=== PATIENT | female | born 1950 | race Caucasian/White ===

== ENCOUNTER 2017-08-07 21:46 | Emergency (ER) | END 2017-08-08 01:14 | disposition home or self-care (01) ==

== ENCOUNTER 2018-11-15 10:37 | Emergency (ER) | payer MEDICARE, OTHER ==
[~2018-11-15] VITALS: Wt 69.5 kg
[~2018-11-15 10:37] MED LIST: AMLO-147 PO; BENA40TA56 PO; CEPH-443 PO; CIPR7.5D BOTH EARS; CLIN300C10 PO; HYDR25TA6 PO
[2018-11-15 10:42] VITALS: BP 137/65; PULSE 68; RESP 20
[2018-11-15] MEDS ORDERED: CIPR7.5D BOTH EARS (10:58)
[2018-11-15] MEDS ORDERED: ACET500C5 PO (10:58)
--- NOTE | 2018-11-15 11:00 | ERD ---
ER Documentation Chief Complaint Chief Complaint c/o bilateral ear pain with drainage at home, "on and off infection x1.5 yr HPI 68-year-old female presents with some right ear discharge and pain. She said intermittent infections and usually responds to antibiotic drops. She is using acetic acid drops currently. She states that she has an appointment with ENT within the next 1-2 months at all a few. She denies fevers, cough, congestion, chest pain or shortness of breath. ROS All systems reviewed and are negative except as per history of present illness. Medications Home Meds Active Scripts Acetaminophen* (Tylophen*) 500 Mg Capsule, 1 CAP PO Q6H PRN for PAIN AND OR ELEVATED TEMP, #20 CAP Prov:ANNABEL MCINTOSH MD 11/15/18 Ciprofloxacin Hcl/Dexameth (Ciprodex Otic Suspension) 7.5 Ml Drops.susp, 4 DROP BOTH EARS BID for 10 Days, EA Prov:ANNABEL MCINTOSH MD 11/15/18 Clindamycin Hcl* (Clindamycin Hcl*) 300 Mg Capsule, 300 MG PO TID for 10 Days, CAP Prov:ESPINOZA BUI PA-C 08/08/17 Ciprofloxacin Hcl/Dexameth (Ciprodex Otic Suspension) 7.5 Ml Drops.susp, 4 DROP BOTH EARS BID for 7 Days, EA Prov:ESPINOZA BUI PA-C 08/08/17 Reported Medications Hydrochlorothiazide (Hydrochlorothiazide) 25 Mg Tablet, 25 MG PO 02/25/11 Cephalexin* (Keflex*) 500 Mg Capsule, 500 MG PO QID 02/25/11 Amlodipine Besylate* (Amlodipine Besylate*) 10 Mg Tablet, 10 MG PO DAILY 02/25/11 Benazepril Hcl* (Benazepril Hcl*) 40 Mg Tablet, 40 MG PO DAILY 02/25/11 Allergies Allergies: Coded Allergies: Penicillins (Verified Adverse Reaction, Mild, 02/25/11) PMhx/Soc History of Surgery: Yes (RJ, C/S) Anesthesia Reaction: No Hx Neurological Disorder: No Hx Respiratory Disorders: No Hx Cardiac Disorders: Yes (HTN) Hx Psychiatric Problems: No Hx Miscellaneous Medical Probl: No Hx Alcohol Use: No Hx Substance Use: No Hx Tobacco Use: No Smoking Status: Never smoker FmHx Family History: No diabetes, No coronary disease, No other Physical Exam Vitals Vital Signs Date Temp Pulse Resp B/P (MAP) Pulse Ox O2 O2 Flow FiO2 Time Delivery Rate 11/15/18 99.6 68 20 137/65 96 10:42 (89) Physical Exam Const: No acute distress Head: Atraumatic Eyes: Normal Conjunctiva ENT: Normal External Ears, Nose and Mouth. Irritation of the right external auditory canal with slight exudate. TMs grossly normal. Airway patent without erythema, acute abnormalities noted. Neck: Full range of motion. No meningismus. Resp: Clear to auscultation bilaterally Cardio: Regular rate and rhythm, no murmurs Abd: Soft, non tender, non distended. Normal bowel sounds Skin: No petechiae or rashes Back: No midline or flank tenderness Ext: No cyanosis, or edema Neur: Awake and alert Psych: Normal Mood and Affect Procedures/MDM Patient presents with remittent right ear pain and discharge worsening over the last week. We will treat with previous medication prescribed Ciprodex. Patient is advised to keep her ENT appointment for persistent symptoms. She should return for fevers, swelling, redness, new worsening symptoms. The patient was stable with no new complaints during the ER course. Clinically, there is no current evidence to suggest meningitis, sepsis, acute abdomen, pneumonia, stroke, acute coronary syndrome, pulmonary embolism, aortic dissection or any other emergent condition appearing to require further evaluation or hospitalization. Patient counseled regarding my diagnostic impression and care plan. Prior to discharge all questions answered. Pt agrees with treatment plan and understands strict return precautions. Pt is instructed to follow up with primary care provider within 24-48 hours. Precautionary instructions provided including instructions to return to the ER if not improving or for any worsening or changing symptoms or concerns. Departure Diagnosis: Primary Impression: Right ear pain Condition: Stable Patient Instructions: External Ear Infection (Adult) Referrals: DOCTOR,NOT ON STAFF (PCP) Additional Instructions: Recheck with ENT as scheduled or return for new or worsening symptoms. ANNABEL MCINTOSH MD Nov 15, 2018 11:00
== END 2018-11-15 11:39 | disposition home or self-care (01) ==
LOC: FTE 10:37
DX: H92.01 Otalgia, right ear (principal); I10 Essential (primary) hypertension
CPT/HCPCS: 99283

== ENCOUNTER 2018-11-18 12:51 | Emergency (ER) | payer MEDICARE, OTHER ==
[~2018-11-18] VITALS: Ht 152.4 cm; Wt 68.6 kg
[~2018-11-18 12:51] MED LIST changes: +ACET500C5 PO
[2018-11-18 12:54] VITALS: Ht 152.4 cm; Wt 68.6 kg
[2018-11-18] MEDS ORDERED: FLUCONAZOLE 150 MG TAB PO ONE (13:30)
[2018-11-18] MEDS ORDERED: D-ME473S2 PO (14:20)
[2018-11-18] MEDS ORDERED: NYST1000 PO (14:20)
--- NOTE | 2018-11-18 14:23 | ERD ---
ER Documentation Chief Complaint Chief Complaint SORE THROAT,COUGH X 2 WEEKS.UNABLE TO EAT. HPI 68-year-old female since with pain in her throat for the last 2 weeks. She is seen by me approximately 4 days ago. She was diagnosed with otitis externa. She did have some white patches on her tongue previous examination but patient thought it was from drinking milk. She has an additional complaint of cough for the last 3 weeks. Cough is nonproductive and dry. She denies chest pain, vomiting, abdominal pain, chest pain. ROS All systems reviewed and are negative except as per history of present illness. Medications Home Meds Active Scripts Nystatin (Nystatin) 100,000 Unit/1 Ml Oral.susp, 5 ML PO QID for 7 Days, OZ Swish and swallow Prov:ANNABEL MCINTOSH MD 11/18/18 Dextromethorphan Hb-Promethazine Hcl* (Promethazine DM* Syrup) 473 Ml Syrup, 5 ML PO Q6 PRN for COUGH for 5 Days, ML Prov:ANNABEL MCINTOSH MD 11/18/18 Acetaminophen* (Tylophen*) 500 Mg Capsule, 1 CAP PO Q6H PRN for PAIN AND OR ELEVATED TEMP, #20 CAP Prov:ANNABEL MCINTOSH MD 11/15/18 Ciprofloxacin Hcl/Dexameth (Ciprodex Otic Suspension) 7.5 Ml Drops.susp, 4 DROP BOTH EARS BID for 10 Days, EA Prov:ANNABEL MCINTOSH MD 11/15/18 Clindamycin Hcl* (Clindamycin Hcl*) 300 Mg Capsule, 300 MG PO TID for 10 Days, CAP Prov:ESPINOZA BUI PA-C 08/08/17 Ciprofloxacin Hcl/Dexameth (Ciprodex Otic Suspension) 7.5 Ml Drops.susp, 4 DROP BOTH EARS BID for 7 Days, EA Prov:ESPINOZA BUI PA-C 08/08/17 Reported Medications Hydrochlorothiazide (Hydrochlorothiazide) 25 Mg Tablet, 25 MG PO 02/25/11 Cephalexin* (Keflex*) 500 Mg Capsule, 500 MG PO QID 02/25/11 Amlodipine Besylate* (Amlodipine Besylate*) 10 Mg Tablet, 10 MG PO DAILY 02/25/11 Benazepril Hcl* (Benazepril Hcl*) 40 Mg Tablet, 40 MG PO DAILY 02/25/11 Allergies Allergies: Coded Allergies: Penicillins (Verified Adverse Reaction, Mild, 02/25/11) PMhx/Soc History of Surgery: Yes (RJ, C/S) Anesthesia Reaction: No Hx Neurological Disorder: No Hx Respiratory Disorders: No Hx Cardiac Disorders: Yes (HTN) Hx Psychiatric Problems: No Hx Miscellaneous Medical Probl: No Hx Alcohol Use: No Hx Substance Use: No Hx Tobacco Use: No Smoking Status: Never smoker FmHx Family History: No diabetes, No coronary disease, No other Physical Exam Vitals Vital Signs Date Temp Pulse Resp B/P (MAP) Pulse Ox O2 O2 Flow FiO2 Time Delivery Rate 11/18/18 99.2 69 18 147/75 95 12:54 (99) Physical Exam Const: No acute distress Head: Atraumatic Eyes: Normal Conjunctiva ENT: Normal External Ears, Nose and Mouth. White plaque on the tongue which is not removable with tongue blade. Oropharynx grossly normal. Uvula midline. Neck: Full range of motion. No meningismus. Resp: Clear to auscultation bilaterally Cardio: Regular rate and rhythm, no murmurs Abd: Soft, non tender, non distended. Normal bowel sounds Skin: No petechiae or rashes Back: No midline or flank tenderness Ext: No cyanosis, or edema Neur: Awake and alert Psych: Normal Mood and Affect Results 24 hrs Current Medications Medications Dose Sig/Scotty Start Time Status Last (Trade) Ordered Route PRN Stop Time Admin Dose Reason Admin Fluconazole 150 mg ONCE ONCE 11/18/18 DC 11/18/18 (Diflucan) PO 13:30 13:41 11/18/18 13:31 Procedures/MDM Chest X-ray 1V Interpreted by me: Soft Tissue: No acute abnormalities Bones: No acute abnormalities Mediastinum/Cardiac Silhouette/Lungs: No acute abnormalities. Impression- normal 1 view chest x-ray with calcified aorta. Mild cardiomegaly. Patient presents with cough for last 2-3 weeks is dry. Will treat with promethazine DM. She also has signs of thrush without airway obstruction, additional concerning abnormalities. She was given Diflucan 150 p.o. here and will be treated with nystatin swish and swallow, continuation of eardrops for otitis externa during previous visit, primary care follow-up and return precautions. The patient was stable with no new complaints during the ER course. Clinically, there is no current evidence to suggest meningitis, sepsis, acute abdomen, pneumonia, stroke, acute coronary syndrome, pulmonary embolism, aortic dissection or any other emergent condition appearing to require further evaluation or hospitalization. Patient counseled regarding my diagnostic impression and care plan. Prior to discharge all questions answered. Pt agrees with treatment plan and understands strict return precautions. Pt is instructed to follow up with primary care provider within 24-48 hours. Precautionary instructions provided including instructions to return to the ER if not improving or for any worsening or changing symptoms or concerns. Departure Diagnosis: Primary Impression: Cough in adult Additional Impression: Thrush, oral Condition: Stable Patient Instructions: Oral Thrush, Cough, Chronic, Uncertain Cause, (Adult) Additional Instructions: X-ray read as normal. Follow-up with primary doctor or return to the ER for new or worsening symptoms. ANNABEL MCINTOSH MD Nov 18, 2018 14:23
[2018-11-18 14:29] VITALS: BP 145/75; PULSE 78; RESP 18
== END 2018-11-18 14:30 | disposition home or self-care (01) ==
LOC: FTE 12:51
DX: R05 Cough (principal); I10 Essential (primary) hypertension; B37.0 Candidal stomatitis
CPT/HCPCS: 71045